=== PATIENT | female | born 1995 | race African-American/Black ===

== ENCOUNTER 2018-01-30 00:05 | Emergency (ER) | payer SELFPAY ==
[2018-01-30 00:41] VITALS: BP 122/82
[2018-01-30] MEDS ORDERED: ACETAMINOPHEN 325 MG TABLET PO ONE (01:05)
[2018-01-30] MEDS: ACETAMINOPHEN 325 MG TABLET PO ONE ×2 (01:11→01:12)
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
== END 2018-01-30 01:16 | disposition home or self-care (01) ==
LOC: ED 00:05
DX: M25.552 Pain in left hip (principal); V89.2XXA Person injured in unspecified motor-vehicle accident, traffic, initial encounter; Y92.9 Unspecified place or not applicable; Y93.9 Activity, unspecified; Y99.9 Unspecified external cause status
CPT/HCPCS: 99282